=== PATIENT | male | born 1965 | race African-American/Black ===

== ENCOUNTER 2020-04-22 17:33 | Emergency (ER) | payer SELFPAY ==
[~2020-04-22] VITALS: Ht 188 cm; Wt 95.0 kg
[2020-04-22 18:09] VITALS: BP 132/79
[2020-04-22] MEDS ORDERED: DIPH,PERTUSS(ACELL),TET VAC/PF 0.5 ML SYRINGE. VAX IM ONE (19:30)
[2020-04-22] MEDS ORDERED: AMOX1TAB61 PO (19:41)
--- NOTE | 2020-04-22 19:41 | PHYS DOC ---
Past Medical History Past Medical History: No Pertinent History Past Surgical History: No Surgical History Smoking Status: Never Smoker Alcohol Use: None General Adult EDM: Chief Complaint: KNEE INJURY HPI: HPI: Patient is a 54 year old male who presented to ER for evaluation of left knee pain that been going on for about 3 weeks. Patient said it happened at work, he was walking beside the bobcat, stepped into a hole and twisted his left knee. Patient has had pain on the lateral part of her left knee ever since. Patient said about a month ago he was walking and stepped onto a nail that it went through his shoe on the right foot. Patient continued to have pain in his right foot, no fever. Review of Systems: Review of Systems: Constitutional: Denies fever or chills. [] Eyes: Denies change in visual acuity. [] HENT: Denies nasal congestion or sore throat. [] Respiratory: Denies cough or shortness of breath. [] Cardiovascular: Denies chest pain or edema. [] GI: Denies abdominal pain, nausea, vomiting, bloody stools or diarrhea. [] : Denies dysuria. [] Musculoskeletal: Positive for left knee pain, right foot pain. Integument: Denies rash. [] Neurologic: Denies headache, focal weakness or sensory changes. [] Endocrine: Denies polyuria or polydipsia. [] Lymphatic: Denies swollen glands. [] Psychiatric: Denies depression or anxiety. [] Heart Score: Risk Factors: Risk Factors: DM, Current or recent (<one month) smoker, HTN, HLP, family history of CAD, obesity. Risk Scores: Score 0 - 3: 2.5% MACE over next 6 weeks - Discharge Home Score 4 - 6: 20.3% MACE over next 6 weeks - Admit for Clinical Observation Score 7 - 10: 72.7% MACE over next 6 weeks - Early Invasive Strategies Current Medications: Current Medications Medications (Trade) Dose Ordered Sig/Boo Start Time Stop Time Status Last Admin Dose Admin Diphtheria/ Tetanus/Acell Pertussis (ADACEL TDap SYRINGE) 0.5 ml ONCE ONCE 04/22/20 19:30 04/22/20 19:31 DC Allergies: Allergies: Allergies Coded Allergies Type Severity Reaction Last Updated Verified No Known Drug Allergies 04/22/20 No Physical Exam: PE: Constitutional: Well developed, well nourished, no acute distress, non-toxic appearance. [] HENT: Normocephalic, atraumatic, bilateral external ears normal, oropharynx moist, no oral exudates, nose normal. [] Eyes: PERRLA, EOMI, conjunctiva normal, no discharge. [] Neck: Normal range of motion, no tenderness, supple, no stridor. [] Cardiovascular:Heart rate regular rhythm, no murmur [] Lungs & Thorax: Bilateral breath sounds clear to auscultation [] Abdomen: Bowel sounds normal, soft, no tenderness, no masses, no pulsatile masses. [] Skin: Warm, dry, no erythema, no rash. [] Back: No tenderness, no CVA tenderness. [] Extremities: left knee is tender to palpation at the lateral part of the knee, knee joint is stable. There is tenderness to palpation on left patela. There is a puncture wound on the bottom of right foot, tender to touch, no drainage. Neurologic: Alert and oriented X 3, normal motor function, normal sensory function, no focal deficits noted. [] Psychologic: Affect normal, judgement normal, mood normal. [] Current Patient Data: Vital Signs: Vital Signs Date Time Temp Pulse Resp B/P (MAP) Pulse Ox O2 Delivery O2 Flow Rate FiO2 04/22/20 18:09 98.8 62 18 132/79 (96) 97 Room Air 98.8 EKG: EKG: [] Radiology/Procedures: Radiology/Procedures: [][facility] [address] [place] [address] IMAGING REPORT Signed PATIENT: AFSHAN MARTINEZ ACCOUNT: [id number] : 1965 LOCATION: ER AGE: 54 SEX: M EXAM STATUS: DEP ER ORD. PHYSICIAN: DAISY STOVALL DO REASON: LEFT KNEE INJURED 3 WEEKS AGO PROCEDURE: KNEE LEFT 3V EXAM: KNEE LEFT 3V 04/22/2020 6:35 PM CLINICAL INDICATION:Left knee injury 3 weeks ago COMPARISON:None TECHNIQUE:AP, oblique, and lateral views of the left knee FINDINGS:There is an old patellar fracture versus bipartite variant of the patella. No acute fracture. Alignment is normal. Mild tricompartmental joint space narrowing with small osteophytes. Small joint effusion. IMPRESSION: 1. No acute osseous abnormality. Small joint effusion. 2. Old patellar fracture versus multipartite variant. 3. Mild tricompartmental degenerative joint disease. Electronically signed by: Aliyah Rivera MD (04/22/2020 9:18 PM) [id number] DICTATED and SIGNED BY: ALIYAH RIVERA MD DATE: 04/22/202117 Course & Med Decision Making: Course & Med Decision Making Pertinent Labs and Imaging studies reviewed. (See chart for details) [] Dragon Disclaimer: Dragon Disclaimer: This electronic medical record was generated, in whole or in part, using a voice recognition dictation system. Departure Departure Impression: Primary Impression: Sprain of left knee Additional Impressions: Left patella fracture Puncture wound of right foot Disposition: 01 DC HOME SELF CARE/HOMELESS Condition: STABLE Referrals: NO PCP (PCP) LUCIANO ZHANG MD please follow up with this orthopedic surgeon for evaluation of your patella fracture. Patient Instructions: Patellar Fracture with Rehab-Sports[facility], Puncture Wound Additional Instructions: Thank you for visiting our Emergency Department. We appreciate you trusting us with your care. If any additional problems come up don't hesitate to return to visit us. Please follow up with your primary care provider so they can plan additional care if needed and know about the problem that you had. If symptoms worsen come back to the Emergency Department. Any concerning symptoms that start such as chest pain, shortness of air, weakness or numbness on one side of the body, running high fevers or any other concerning symptoms return to the ER. Scripts Amoxicillin/Potassium Clav (AUGMENTIN 875-125 TABLET) 1 Each Tablet 1 TAB PO BID for 10 Days, #20 TAB 0 Refills Prov: DAISY STOVALL DO 04/22/20 DAISY STOVALL DO Apr 22, 2020 19:41
--- NOTE | 2020-04-22 21:20 | RAD ---
EXAM: KNEE LEFT 3V 04/22/2020 6:35 PM CLINICAL INDICATION:Left knee injury 3 weeks ago COMPARISON:None TECHNIQUE:AP, oblique, and lateral views of the left knee FINDINGS:There is an old patellar fracture versus bipartite variant of the patella. No acute fracture. Alignment is normal. Mild tricompartmental joint space narrowing with small osteophytes. Small joint effusion. IMPRESSION: 1. No acute osseous abnormality. Small joint effusion. 2. Old patellar fracture versus multipartite variant. 3. Mild tricompartmental degenerative joint disease. Electronically signed by: Aliyah Rivera MD (04/22/2020 9:18 PM) [id number]
== END 2020-04-22 20:38 | disposition home or self-care (01) ==
LOC: ER 17:33
DX: S82.092A Other fracture of left patella, initial encounter for closed fracture (principal); S83.8X2A Sprain of other specified parts of left knee, initial encounter; S91.331A Puncture wound without foreign body, right foot, initial encounter; X50.1XXA Overexertion from prolonged static or awkward postures, initial encounter; Y93.89 Activity, other specified; Y92.89 Other specified places as the place of occurrence of the external cause; Y99.0 Civilian activity done for income or pay
CPT/HCPCS: 29505; 73562; 90471; 90715; 99283